=== PATIENT | male | born 1950 | race Caucasian/White ===

== ENCOUNTER 2024-06-27 07:00 | Emergency (ER) | payer MEDICARE, OTHER, SELFPAY ==
[2024-06-27] VITALS (13 sets, daily range): BP systolic 88–112; BP diastolic 60–79
--- NOTE | 2024-06-27 07:27 | ED.GENMED ---
History of Present Illness
<Neri Crowder PA-C - Last Filed: 06/27/24 10:11>
General
Chief Complaint: Heart Rate Problem
Time Seen by Provider: 06/27/24 07:15
History of Present Illness
History of Present Illness:
73-year-old male with history of paroxysmal A-fib currently on Eliquis presents to the emergency department for evaluation of lightheadedness, gait instability, and exertional shortness of breath beginning upon awakening this morning. He used his
Apple Watch at which time he noted an elevated heart rate and a reported A-fib. Symptoms comparable to past bout AF. No complaints of chest pain or leg swelling. No recent fevers or chills. Denies any illicit substance use.
Review of Systems
<Neri Crowder PA-C - Last Filed: 06/27/24 10:11>
Review of Systems
Allergies reviewed?: Yes
All Other Systems: ROS reviewed and negative except as documented in HPI and ROS
Phy Exam
<HEMALATHA Cooper Last Filed: 06/27/24 10:11>
Physical Exam
Physical Exam:
GEN: Well appearing, NAD, WDWN
HEENT: Oral mucosa moist, no scleral icterus, no nasal congestion
Cardiac: Controlled rate but irregular rhythm, no murmurs
Lung: No respiratory distress, no tachypnea, lungs clear to auscultation bilaterally
MSK: No gross deformity or injuries
Skin: Good color, no pallor or jaundice, no rashes
Neuro: AO x3; CN II-XII grossly intact. BUE strength 5/5 in all villalobos, sensation intact and symmetric. BLE strength 5/5 in all villalobos, sensation intact and symmetric
Psych: Calm, cooperative
Course
<HEMALATHA Cooper Last Filed: 06/27/24 10:11>
Orders/Labs/Results
Orders:
Orders
06/27/24 07:02
EKG [Electrocardiogram (*1)] Urgent
Reason for Study: Atrial Fibrillation
EKG- Treatment ONCE
06/27/24 07:46
Complete Blood Count/With Diff Urgent
06/27/24 08:05
Comprehensive Metabolic Panel Urgent
Troponin I Urgent
06/27/24 08:57
Propofol [Diprivan] 20 ml .ROUTE .STK-MED
06/27/24 09:13
Electrocardiogram (*1) Urgent
Reason for Study: Other
Other Reason for Exam: post cardioversion
EKG- Treatment ONCE
Abnormal Lab Results
06/27/24
08:05
Chloride 109 H mmol/L
(98-107)
BUN 21 H mg/dl
(9-20)
Glucose 105 H mg/dl
(70-99)
Total Protein 6.2 L g/dl
(6.3-8.2)
06/27/24 08:05
Vital Signs
Initial and Last Documented VS:
Initial Vital Signs
Temp Pulse Resp BP Pulse Ox
97.8 F 81 16 109/60 98
06/27/24 07:08 06/27/24 07:08 06/27/24 07:08 06/27/24 07:08 06/27/24 07:08
Last Documented Vital Signs
Temp Pulse Resp BP Pulse Ox
97.6 F 61 19 106/79 97
06/27/24 09:55 06/27/24 09:45 06/27/24 09:45 06/27/24 09:45 06/27/24 09:45
Piperlt;Gaetano Alvarado, - Last Filed: 06/27/24 09:13>
Orders/Labs/Results
Orders:
Orders
06/27/24 07:02
EKG [Electrocardiogram (*1)] Urgent
Reason for Study: Atrial Fibrillation
EKG- Treatment ONCE
06/27/24 07:46
Complete Blood Count/With Diff Urgent
06/27/24 08:05
Comprehensive Metabolic Panel Urgent
Troponin I Urgent
06/27/24 08:57
Propofol [Diprivan] 20 ml .ROUTE .STK-MED
06/27/24 09:13
Electrocardiogram (*1) Urgent
Reason for Study: Other
Other Reason for Exam: post cardioversion
EKG- Treatment ONCE
Abnormal Lab Results
06/27/24
08:05
Chloride 109 H mmol/L
(98-107)
BUN 21 H mg/dl
(9-20)
Glucose 105 H mg/dl
(70-99)
Total Protein 6.2 L g/dl
(6.3-8.2)
06/27/24 08:05
Vital Signs
Initial and Last Documented VS:
Initial Vital Signs
Temp Pulse Resp BP Pulse Ox
97.8 F 81 16 109/60 98
06/27/24 07:08 06/27/24 07:08 06/27/24 07:08 06/27/24 07:08 06/27/24 07:08
Last Documented Vital Signs
Temp Pulse Resp BP Pulse Ox
97.6 F 61 19 106/79 97
06/27/24 09:55 06/27/24 09:45 06/27/24 09:45 06/27/24 09:45 06/27/24 09:45
Procedures
<Neri Crowder PA-C - Last Filed: 06/27/24 10:11>
Cardioversion
Indication:: Afib
Performed by:: Neri Crowder PA-C, Gaetano Alvarado DO
Synchronized?: Yes
Energy Used: 150 joules
Number of attempts: 1
Successful?: Yes
Complications: none
ASA Risk Score: Class II
Any reaction or bad outcome to prior sedation/anesthesia?: No history of a reaction
Sedation level to be attained: moderate
Chart and allergies reviewed: Yes
Patient reassessed prior to sedation: Yes
Time out completed at (validating right patient & procedure): 09:00
History of difficult intubation: No
Airway free of obstruction: Yes
Patient has a gag reflex: Yes
Patient is able to open mouth: Yes
Patient has no dentures: Yes
Patient has no loose teeth: Yes
Medication administered by Provider during Moderate Sedation: IV Propofol (mg)
Total dose administered: 60
Time drug administered: 09:00
Start Time: 09:00
Stop Time: 09:11
<Neri Crowder PA-C - Last Filed: 06/27/24 10:11>
MDM/Problems Addressed
MDM/Problems Addressed:
Patient presents in rate controlled A-fib however he is markedly symptomatic with any degree of exertion. Underwent successful electrical cardioversion emergency department, no procedural complications noted. Tolerated this well and was discharged
in stable condition. At this time would not recommend any medication adjustments however he should follow-up with his resistor winder for further discussion
<Neri Crowder PA-C - Last Filed: 06/27/24 10:11>
*Critical Care Note
Total Time (30-74mins, 75-104mins- exclusive of procedures): Not Applicable
ED Attending Note
<Neri Crowder PA-C - Last Filed: 06/27/24 10:11>
-
Portions of this chart may have been created with voice recognition software.� Occasional wrong word or��sound alike� substitutions may have occurred due to the inherent limitations of voice recognition software.
<Gaetano Alvarado DO - Last Filed: 06/27/24 09:13>
ED Attending Note
Patient seen and examined by attending physician: Yes
I performed the substantive portion of visit, reviewed & personally made and approve the management plan that is documented in note by myself or GISELLA.: Yes
I performed a history and physical exam of patient and discussed management with resident, I reviewed resident's note and agree with documented findings and plan of care.: Yes
ED Attending Note:
I evaluated patient at bedside. I was present for the entire procedure for electrical cardioversion. Patient tolerated well.
Discharge Plan
Departure
Patient Disposition: Home (Routine Discharge)
Date of Disposition: 06/27/24
Time of Disposition: 09:43
Patient with high blood pressure during this ER visit?: No
Discharge Problem:
Paroxysmal A-fib
Instructions: Cardioversion (DC), Moderate Sedation in Adults (DC)
Prescriptions:
No Action
diltiazem HCl [Cartia XT] 120 mg Capsule,Extended Release 24hr
120 mg PO DAILY
tadalafil 10 mg Tablet
10 mg PO DAILY
Eliquis 5 mg Tablet
5 mg PO BID
Centrum Minis Men 50 Plus [id number] mcg Tablet
1 tab PO DAILY
Referrals:
Lance Da Silva MD [Family Provider] -
Interventions
Interventions:
*Risk Screen - Suicide Last Done: 06/27/24 07:08
*General Assessment Last Done: 06/27/24 07:08
*Neglect/Abuse Screening Last Done: 06/27/24 07:08
ED- Fall Risk Assessment Last Done: 06/27/24 10:00
*Nursing Disposition Last Done: 06/27/24 09:59
ED- Cardiac Assessment Last Done: 06/27/24 07:34
ED- Pulmonary Assessment Last Done: 06/27/24 07:36
Discharge Date and Time
Discharge Date/Time: 06/27/24 10:05
Print Language: FRENCH
[2024-06-27 08:26] LABS: ALT (SGPT) 22 U/L (0-50); AST (SGOT) 26 U/L (17-59); Albumin 4.2 g/dl (3.5-5.0); Alkaline Phosphatase 82 U/L (38-126); Blood Urea Nitrogen 21 mg/dl (9-20); Calcium 9.4 mg/dl (8.4-10.2); Carbon Dioxide 24 mmol/L (22-30); Chloride 109 mmol/L (98-107); Glucose 105 mg/dl (70-99); Potassium 4.2 mmol/L (3.5-5.1); Sodium 140 mmol/L (135-145); Total Protein 6.2 g/dl (6.3-8.2); eGFR > 60.00
[2024-06-27 08:37] LABS: Troponin I < 0.012 ng/ml
[2024-06-27 10:33] LABS: % Basophils 1.2 % (0-2); % Eosinophils 2.5 % (0-6); % Immature Granulocytes 0.2 % (0-0.5); % Lymphocytes 26.8 % (20.5-51.1); % Monocytes 9.7 % (1.7-9.3); % Neutrophils 59.6 % (42.2-75.2); Absolute Basophils 0.1 10^3/uL (0-0.2); Absolute Eosinophils 0.2 10^3/uL (0-0.7); Absolute Lymphocytes 1.6 10^3/uL (1.2-3.4); Absolute Monocytes 0.6 10^3/uL (0.1-0.6); Absolute Neutrophils 3.5 10^3/uL (1.4-6.5); Hematocrit 45.3 % (39.0-52.0); Hemoglobin 16.2 g/dL (13.0-18.0); Mean Corp Hgb Conc. 35.8 g/dL (33.0-37.0); Mean Corpuscular Hgb 31.5 pg (27.0-31.0); Mean Platelet Volume 11.3 fL (7.4-10.4); Nucleated Red Blood Cells % 0 % (-); Platelet Count 229 10^3/uL (130-400); Red Blood Cell Count 5.15 10^6/uL (4.70-6.10); White Blood Cell Count 5.9 10^3/uL (4.8-10.8)
== END 2024-06-27 10:05 | disposition home or self-care (01) ==
LOC: EMR 07:00
PROVIDERS: Physician Assistant; EMERGENCY PHYSICIAN Emergency Medicine; FAMILY PHYSICIAN Internal Medicine
DX: I48.0 Paroxysmal atrial fibrillation (principal); R26.89 Other abnormalities of gait and mobility; Z79.01 Long term (current) use of anticoagulants
CPT/HCPCS: 99283; 80053; 84484; 85025; 93005

== ENCOUNTER → 2024-07-23 09:54 | Outpatient (REF) | payer MEDICARE, OTHER, SELFPAY | LOC: RCS 09:54 | PROVIDERS: ATTENDING PHYSICIAN Internal Medicine Cardiovascular Disease; FAMILY PHYSICIAN Nurse Practitioner Adult Health; REFERRING PHYSICIAN Internal Medicine Cardiovascular Disease | DX: I48.91 Unspecified atrial fibrillation (principal); Z79.01 Long term (current) use of anticoagulants; I34.0 Nonrheumatic mitral (valve) insufficiency; I48.19 Other persistent atrial fibrillation | CPT/HCPCS: 93017; 93306 ==

== ENCOUNTER → 2024-10-07 08:32 | Outpatient (REF) | payer MEDICARE, OTHER, SELFPAY ==
[2024-10-07 09:42] LABS: % Basophils 0.8 % (0-2); % Eosinophils 3.1 % (0-6); % Immature Granulocytes 0.3 % (0-0.5); % Lymphocytes 21.4 % (20.5-51.1); % Monocytes 8.8 % (1.7-9.3); % Neutrophils 65.6 % (42.2-75.2); Absolute Basophils 0.1 10^3/uL (0-0.2); Absolute Eosinophils 0.2 10^3/uL (0-0.7); Absolute Lymphocytes 1.4 10^3/uL (1.2-3.4); Absolute Monocytes 0.6 10^3/uL (0.1-0.6); Absolute Neutrophils 4.2 10^3/uL (1.4-6.5); Hematocrit 46.4 % (39.0-52.0); Hemoglobin 16.3 g/dL (13.0-18.0); Mean Corp Hgb Conc. 35.1 g/dL (33.0-37.0); Mean Corpuscular Hgb 32.5 pg (27.0-31.0); Mean Corpuscular Volume 92.4 fL (80.0-94.0); Mean Platelet Volume 10.2 fL (7.4-10.4); Nucleated Red Blood Cells % 0 % (-); Platelet Count 181 10^3/uL (130-400); Red Blood Cell Count 5.02 10^6/uL (4.70-6.10); Red Cell Dist. Width 11.9 % (11.5-14.5); White Blood Cell Count 6.4 10^3/uL (4.8-10.8)
[2024-10-07 10:51] LABS: ALT (SGPT) 30 U/L (0-50); AST (SGOT) 33 U/L (17-59); Albumin 4.7 g/dl (3.5-5.0); Alkaline Phosphatase 78 U/L (38-126); Blood Urea Nitrogen 19 mg/dl (9-20); Calcium 9.5 mg/dl (8.4-10.2); Carbon Dioxide 27 mmol/L (22-30); Chloride 102 mmol/L (98-107); Glucose 89 mg/dl (70-99); HDL Cholesterol 36 mg/dl; LDL Cholesterol, Calculated 123 mg/dl; Potassium 4.9 mmol/L (3.5-5.1); Sodium 140 mmol/L (135-145); Total Bilirubin 0.9 mg/dl (0.2-1.3); Total Cholesterol 187 mg/dl (50-199); Total Protein 6.9 g/dl (6.3-8.2); Triglyceride 141 mg/dl (10-149); Very Low Density Lipoprotein 28 mg/dl (0-30); eGFR > 60.00
[2024-10-07 11:00] LABS: PSA, Total - Screen 2.19 ng/ml (0.0-4.0)
[2024-10-09 15:21] LABS: PSA Total 2.7 ng/mL (0.0-4.0)
== END ==
LOC: REG 08:32
PROVIDERS: ATTENDING PHYSICIAN Surgery; FAMILY PHYSICIAN Nurse Practitioner Adult Health
DX: Z12.5 Encounter for screening for malignant neoplasm of prostate (principal); Z00.00 Encounter for general adult medical examination without abnormal findings; Z79.01 Long term (current) use of anticoagulants; I48.19 Other persistent atrial fibrillation; Z85.46 Personal history of malignant neoplasm of prostate
CPT/HCPCS: 36415; 80053; 80061; 84153; 84154; 85025; G0103

== ENCOUNTER → 2025-03-09 10:58 | Outpatient (REF) | payer MEDICARE, OTHER, SELFPAY | LOC: SDSPAT 10:58 | PROVIDERS: ATTENDING PHYSICIAN Internal Medicine Cardiovascular Disease; FAMILY PHYSICIAN Nurse Practitioner Adult Health; OTHER PHYSICIAN Internal Medicine Cardiovascular Disease | DX: I48.19 Other persistent atrial fibrillation (principal) | CPT/HCPCS: 93005 ==

== ENCOUNTER 2025-03-10 06:44 | Day surgery (SDC) | payer MEDICARE, OTHER, SELFPAY ==
[2025-03-09 11:05] VITALS: BMI 28.7
== END 2025-03-10 09:17 | disposition home or self-care (01) ==
LOC: CATH 06:44
PROVIDERS: ATTENDING PHYSICIAN Internal Medicine Cardiovascular Disease; FAMILY PHYSICIAN Internal Medicine; OTHER PHYSICIAN Internal Medicine Cardiovascular Disease
DX: I48.19 Other persistent atrial fibrillation (principal); Z79.01 Long term (current) use of anticoagulants; I44.0 Atrioventricular block, first degree; Z86.0100 Personal history of colon polyps, unspecified; K57.90 Diverticulosis of intestine, part unspecified, without perforation or abscess without bleeding; N40.1 Benign prostatic hyperplasia with lower urinary tract symptoms; N52.9 Male erectile dysfunction, unspecified; Z79.899 Other long term (current) drug therapy
CPT/HCPCS: 92960; 93005

== ENCOUNTER → 2025-10-01 13:42 | Outpatient (REF) | payer MEDICARE, OTHER, SELFPAY | LOC: RCS 13:42 | PROVIDERS: ATTENDING PHYSICIAN Internal Medicine Cardiovascular Disease; FAMILY PHYSICIAN Nurse Practitioner Adult Health | DX: I48.0 Paroxysmal atrial fibrillation (principal) | CPT/HCPCS: 93306 ==

== ENCOUNTER → 2025-10-08 08:38 | Outpatient (REF) | payer MEDICARE, OTHER, SELFPAY ==
[2025-10-08 09:33] LABS: Hematocrit 47.9 % (39.0-52.0); Hemoglobin 15.9 g/dL (13.0-18.0); Mean Corp Hgb Conc. 33.2 g/dL (33.0-37.0); Mean Corpuscular Volume 95.8 fL (80.0-94.0); Nucleated Red Blood Cells % 0 % (-); Platelet Count 195 10^3/uL (130-400); Red Cell Dist. Width 11.9 % (11.5-14.5)
[2025-10-08 10:38] LABS: ALT (SGPT) 47 U/L (0-50); AST (SGOT) 36 U/L (17-59); Albumin 4.5 g/dl (3.5-5.0); Alkaline Phosphatase 94 U/L (38-126); Blood Urea Nitrogen 18 mg/dl (9-20); Calcium 9.3 mg/dl (8.4-10.2); Carbon Dioxide 30 mmol/L (22-30); Chloride 105 mmol/L (98-107); Glucose 86 mg/dl (70-99); HDL Cholesterol 31 mg/dl; LDL Cholesterol, Calculated 54 mg/dl; Potassium 4.7 mmol/L (3.5-5.1); Sodium 140 mmol/L (135-145); Total Protein 6.7 g/dl (6.3-8.2); Very Low Density Lipoprotein 16 mg/dl (0-30); eGFR > 60.00
[2025-10-08 10:59] LABS: PSA, Total - Screen 2.10 ng/ml (0.0-4.0)
== END ==
LOC: REG 08:38
PROVIDERS: ATTENDING PHYSICIAN Nurse Practitioner Adult Health
DX: I48.0 Paroxysmal atrial fibrillation (principal); E78.6 Lipoprotein deficiency; Z12.5 Encounter for screening for malignant neoplasm of prostate; Z79.01 Long term (current) use of anticoagulants
CPT/HCPCS: 36415; 80053; 80061; 84443; 85025; G0103

== ENCOUNTER → 2025-10-21 10:10 | Outpatient (REF) | payer MEDICARE, OTHER, SELFPAY ==
[2025-10-21 11:52] LABS: HDL Cholesterol 32 mg/dl; LDL Cholesterol, Calculated 44 mg/dl; Very Low Density Lipoprotein 17 mg/dl (0-30)
== END ==
LOC: REG 10:10
PROVIDERS: ATTENDING PHYSICIAN Internal Medicine Cardiovascular Disease; FAMILY PHYSICIAN Nurse Practitioner Adult Health
DX: E78.2 Mixed hyperlipidemia (principal)
CPT/HCPCS: 36415; 80061

== ENCOUNTER → 2025-11-09 12:37 | Outpatient (REF) | payer MEDICARE, OTHER, SELFPAY ==
[2025-11-09 13:38] LABS: Hematocrit 45.3 % (39.0-52.0); Hemoglobin 15.3 g/dL (13.0-18.0); Mean Corp Hgb Conc. 33.8 g/dL (33.0-37.0); Mean Corpuscular Volume 93.0 fL (80.0-94.0); Nucleated Red Blood Cells % 0 % (-); Platelet Count 204 10^3/uL (130-400); Red Cell Dist. Width 11.8 % (11.5-14.5)
[2025-11-09 14:42] LABS: ALT (SGPT) 63 U/L (0-50); AST (SGOT) 44 U/L (17-59); Albumin 4.5 g/dl (3.5-5.0); Alkaline Phosphatase 110 U/L (38-126); Blood Urea Nitrogen 18 mg/dl (9-20); Calcium 8.8 mg/dl (8.4-10.2); Carbon Dioxide 27 mmol/L (22-30); Chloride 104 mmol/L (98-107); Glucose 86 mg/dl (70-99); Potassium 4.5 mmol/L (3.5-5.1); Sodium 138 mmol/L (135-145); Total Protein 6.5 g/dl (6.3-8.2); eGFR > 60.00
== END ==
LOC: SDSPAT 12:37
PROVIDERS: ATTENDING PHYSICIAN Internal Medicine Cardiovascular Disease; FAMILY PHYSICIAN Nurse Practitioner Adult Health; OTHER PHYSICIAN Internal Medicine Cardiovascular Disease
DX: I48.0 Paroxysmal atrial fibrillation (principal)
CPT/HCPCS: 36415; 80053; 85025; 86850; 86900; 86901; 93005

== ENCOUNTER 2025-11-16 07:59 | Day surgery (SDC) | payer MEDICARE, OTHER, SELFPAY ==
[2025-11-09 12:56] VITALS: BMI 28.0
--- NOTE | 2025-11-09 13:08 | HPS.HSE ---
Family Physician
-
Family Physician: NO INTERVIEW UNKNOWN
Chief Complaint
-
Persistent atrial fibrillation.
History of Present Illness
The patient is a 74-year-old pleasant male presenting today for persistent atrial fibrillation. The patient was initially diagnosed with his arrhythmia in June 2023. He reports a history of palpitations, dyspnea on exertion,
lightheadedness, and fatigue secondary to this diagnosis. He has previously undergone 3 cardioversions, with the last occurring in February of this year. He is on current pharmacological therapy with Diltiazem. He does report compliance with Eliquis
for oral anticoagulation due to a [id number] of 2. Given his increasing episodes of atrial fibrillation and recurrent symptoms, it is advised he undergo an Affera atrial fibrillation ablation for more definitive arrhythmia management. He denies
any current complaints today such as chest pain, shortness of breath at rest, nausea, vomiting, diarrhea, cough, sore throat, or fever.
Medical History
Past Medical History
Past Medical History: Reports Other
Additional Past Medical History:
1. Persistent atrial fibrillation, status post cardioversion x3; pharmacological therapy with Diltiazem and oral anticoagulation with Eliquis.
2. Hyperlipidemia.
3. First-degree AV block.
4. Dilated aortic root and ascending aorta.
5. Colon polyps.
6. Diverticulosis.
7. BPH with LUTS.
8. Erectile dysfunction.
9. Mildly elevated transaminase.
Past Surgical History: Reports Other
Additional Past Surgical History:
1. Cardioversion x3.
2. Left knee arthroscopy.
3. Right knee arthroscopy.
4. Right inguinal hernia repair.
5. Left inguinal hernia repair.
6. Right wrist surgery.
7. Nasal surgery.
8. Bilateral cataract extraction.
9. Multiple colonoscopies.
Social History
Tobacco: Non-smoker
Alcohol: None (for almost 2 years. )
Personal:
Living: Other (The patient lives in a bilevel home with his . )
Family History
Family History: Other (The patient reports that his sister had a history of atrial fibrillation, but unfortunately shortly after an atrial fibrillation ablation that was performed at another facility. Details of this event are not fully
clear. Reassurance has been provided. )
Allergies / Home Medications
Allergy/Medication List:
HOME MEDICATIONS:
1. Apixaban 5 mg p.o. twice a day.
2. Diltiazem HCL 120 mg p.o. daily.
3. Centrum Silver multivitamin 1 tablet p.o. daily.
4. Tadalafil 10 mg p.o. daily.
5. Atorvastatin 40 mg p.o. daily.
ALLERGIES: No known allergies.
Review of Systems
-
A 12 point ROS was completed and negative except as noted: Yes
Physical Exam
Vital Signs
Blood pressure 128/64. Heart rate 57. Respirations 18. Pulse ox 97% on room air.
Height 5 feet, 10.5 inches. Weight 89.9 kg. BMI 28.0.
Physical Exam
General: Well Developed, Well Nourished and No Apparent Distress
HEENT: NormoCephalic, Moist mucous membranes, Atraumatic and PERRLA
Respiratory: Clear
Cardiac: Bradycardia
GI: Soft, Non Tender and Non Distended
Musculoskeletal: No Edema and Normal Gait & Station
Skin: Warm and Dry
Neuro: AO x 3 and Nonfocal/grossly intact
Laboratory Results
-
DIAGNOSTIC STUDIES as of 11/09/2025: White blood cell count 5.2. Hemoglobin 15.3. Platelet count 204,000. Sodium 138. Potassium 4.5. BUN 18. Creatinine 0.7. Glucose 86. Calcium 8.8. AST 44. ALT 63. Albumin 4.5. Type and screen O positive.
EKG 11/09/2025: Sinus bradycardia with first degree AV block and premature supraventricular complexes. Otherwise normal EKG.
Echocardiogram 10/01/2025: Ejection fraction is 60-65% by visual assessment. Mildly dilated right ventricle with normal systolic function. Indexed left atrial volume is moderately abnormal (42-48 ml/m2). Moderately dilated right atrium. No
significant valvular disease. Compared to a prior transthoracic echocardiogram study from 07/23/2024, no significant changes are seen.
Impression/Plan
-
IMPRESSION/PLAN:
1. Persistent atrial fibrillation: The patient is in need of an Affera atrial fibrillation ablation with Dr. Blanca North on 11/16/2025. The benefits and risks of the procedure have been explained to the patient. The patient understands these risks
and wishes to proceed. He will not be required to undergo a pre-procedural transesophageal echocardiogram as he has been compliant with his home oral anticoagulation. He is aware to continue his Eliquis uninterrupted prior to his procedure. He has
been advised to hold Tadalafil 48 hours prior. His Eliquis will be held the morning of his ablation.
[2025-11-16] VITALS (9 sets, daily range): BP systolic 108–137; BP diastolic 65–81
[2025-11-16 11:33] LABS: ACT-LR - POC 358 Seconds (116-155)
[2025-11-16 11:54] LABS: ACT-LR - POC 298 Seconds (116-155)
--- NOTE | 2025-11-16 12:20 | ITS.CL.ABL ---
[facility] - Ablation
Ablation
Procedure Report:
AFIB ablation:
Mr. Levy is a very pleasant 74 yr old gentleman with medical history significant for symptomatic paroxysmal atrial fibrillation is here in the EP lab for atrial fibrillation ablation
Date of Procedure:
11/16/2025
Indications:
Symptomatic paroxysmal atrial fibrillation
Pre-Operative Diagnosis:
Paroxysmal atrial fibrillation
Post-Operative Diagnosis:
Paroxysmal atrial fibrillation
Procedure Performed:
Atrial fibrillation ablation with wide area circumferential ablation (WACA) approach for pulmonary vein isolation
Performing Physician:
Blanca North MD
Assistants:
EP staff
Anesthesia:
See anesthesia records
Detailed Description of the Procedure:
Written informed consent was obtained from the patient after a full explanation of the risks and benefits of the procedure including the risks of sedation and anesthesia.
The patient was brought to the electrophysiology laboratory in stable condition in fasting state. Continuous electrocardiographic and hemodynamic monitoring was initiated.
The initial rhythm was sinus rhythm.
The procedure site was meticulously prepared with surgical scrub and allowed to dry with no pooling. Sterile draping was applied to cover the procedure site. The image intensifier was draped with sterile bag and positioned over the patient. After
infusion of local anesthetic, vascular access was obtained under ultrasound guidance and sheaths were placed over guide wire as detailed below.
The images of the ultrasound of the femoral vessels were stored in patient chart.
Sheath and Catheter Placement:
In the right femoral vein, a 8-Indonesian sheath was placed under ultrasound guidance for use during the ablation procedure. In the right femoral vein, another 9-Fr sheath was placed for use during intracardiac echo procedure.
The sheaths were upgraded as needed during the case. Intracardiac catheters were positioned using direct fluoroscopic guidance. ICE catheter was placed in RA. The following catheters / sheaths were placed
Sheaths:
Agilis sheath in right femoral vein upgraded from 8Fr in right femoral vein
9Fr in right femoral vein
Catheters:
The Affera Sphere 9 catheter -bidirectional D/F - at locations of HRA, LA and LV.
ICE catheter -AccuNav - at locations of RA, SVC, and RV.
Heparin was initiated after the access was obtained.
Intracardiac ECHO:
An 8-Indonesian AcuNav intracardiac ECHO (ICE) probe was advanced through the 9-Indonesian sheath in the left femoral vein into the right atrium under fluoroscopic and ICE ultrasound image guidance and a baseline ECHO study was performed. The left atrial
size was mildly dilated. There was trace tricuspid regurgitation. The aortic valve was grossly normal. There was normal left ventricular size and function. There is no pericardial effusion. The MARILUZ has baseline normal velocities. The pulmonary had
good flow identified.
During the procedure, ICE was used for monitoring of complications, guidance of trans-septal puncture, monitor the catheter position and tracking ablation lesions. No change in the pericardial space noted throughout the procedure.
Trans-septal Puncture:
Heparin was initiated and infused to maintain appropriate ACT. A J-tipped guidewire was advanced through into the superior vena cava under fluoroscopic and ICE guidance. The Agilis sheath with BRK needle was advanced into the superior vena cava over
the guidewire. The apparatus was withdrawn until it was in contact with the fossa ovalis. The position was adjusted based on fluoroscopy and ultrasound images from ICE. Under fluoroscopic, hemodynamic and ICE ultrasound guidance, left atrium was
cannulated by advancing the needle. Once atrial septum was cannulated, the needle was pulled back and the guide wire was advanced through the needle into the left atrium. The guide wire was advanced into the left superior pulmonary vein. Both the
sheath and the dilator was advanced into the left atrium. The dilator with the needle was withdrawn. Blood was aspirated from the Agilis sheath and arterial blood confirmed. The sheath was flushed. Saline injection noted into the left atrium on ICE.
The waveform of the LA pressure was recorded. The mapping catheter was advanced in the Agilis sheath into the left pulmonary vein.
3D Electroanatomic Mapping:
Using the Sphere 9 Affera catheter advanced through Agilis sheath into the left atrium, an electroanatomic map (EAM) of the left atrium was created using One Block Off the Grid (1BOG)� mapping system with RADLIVE software. The map was used for localization of catheter
position and tacking of ablation lesions. The EAM of the left atrium showed a total of 4 PVs with a two left and two right sided pulmonary veins with all electrically connected to the body the LA. It showed no significant scar on the posterior wall
of the LA. The LA was dilated in size.
Following the EAM, preparation were made for ablation.
Ablation:
Ablation # 2: Pulmonary vein Isolation:
Glycopyrrolate 0.2 mg was given prior to the placement of ablation.
Pulsed field ablation was performed using an open irrigation, bidirectional, contact sensing, dual energy ablation catheter (InHiroa sphere -9) by completing the circumferential lesions around the left and right pulmonary veins achieving pulmonary
vein isolation.
Confirmation of the PVI and bidirectional block:
Following achievement of entrance block at the pulmonary veins, pacing from the Sphere 9 affera catheter in each of the four veins at 20 milliamps for 4 milliseconds showed entrance and exit block.
The LA was mapped with The InHiroa� mapping system with Prism-1 software in sinus rhythm confirming the line of block at the ablation lesions lines.
EP study:
Sinus Node Function: The sinus node functions are within acceptable normal range.
Atrioventricular Belkis Function: Normal AV conduction noted with normal AV belkis conduction time.
Procedure End
ICE study was done again that showed no epicardial accumulation. No complications noted.
Following the completion of the EP study, catheters were removed. Protamine 40 mg was given at the end of the procedure and ACT was checked repeatedly. The sheaths were removed and hemostasis achieved with VASCADE and manual compression after
acceptable ACT is achieved.
Left atrial Pressure:
Pre-Procedure: Mean LA pressure was 6mmHg
Post-Procedure: Mean LA pressure was 8mmHg
Post-Procedure: Mean RA pressure was 6mmHg
Estimated Blood loss:
<10 cc
Specimens Removed:
None.
Implants / Devices:
None
Urine output:
None
Packs / Drains/ Tubes:
None
Instrument / Sponge Count Correct:
Yes
Complications of the Procedure:
None
Condition of Patient at Time of Transfer:
Hemodynamically stable with no neurological or vascular compromise.
Summary:
Successful atrial fibrillation ablation with circumferential bidirectional line of block at pulmonary vein antra (Pulmonary vein isolation)
Figures from the Procedure:
Figure 1: The electroanatomic mapping (EAM) of the left atrium with bipolar voltage (purple indicates normal electrical activity with red as no myocardial muscle electric activity indicating a line of block or scar.
--- NOTE | 2025-11-16 15:27 | W.PN.UPDATE ---
Update Note
Progress Note Update
Pt seen post PFA. Right groin with vascade closure, no ht/bleeding. OOB ambulating. Post EKG NSR w/1st deg AVB as before, no acute changes. Resume eliquis tonight. Followup at [facility] as scheduled. Home today if groin site/tele remain stable.
== END 2025-11-16 15:00 | disposition home or self-care (01) ==
LOC: CATH 07:59
PROVIDERS: ATTENDING PHYSICIAN Internal Medicine Cardiovascular Disease; FAMILY PHYSICIAN Internal Medicine; OTHER PHYSICIAN Orthopaedic Surgery
DX: I48.19 Other persistent atrial fibrillation (principal); I44.0 Atrioventricular block, first degree; N40.1 Benign prostatic hyperplasia with lower urinary tract symptoms; Z79.01 Long term (current) use of anticoagulants; Z79.899 Other long term (current) drug therapy; Z86.0100 Personal history of colon polyps, unspecified; Z98.41 Cataract extraction status, right eye; E78.5 Hyperlipidemia, unspecified; Z98.42 Cataract extraction status, left eye; K57.90 Diverticulosis of intestine, part unspecified, without perforation or abscess without bleeding; R74.01 Elevation of levels of liver transaminase levels
CPT/HCPCS: C1769; C1733; C1766; C1894; C1892; C1759; 85347; 86900; 86901; 93005; 93656; C1760